=== PATIENT | female | born 1990 | race Caucasian/White ===

== ENCOUNTER 2021-08-12 18:13 | Inpatient (IN) | payer OTHER ==
[2021-08-12 19:07] VITALS: BMI 38.9
[2021-08-12] MEDS ORDERED: Penicillin G Potassium 5 MILL.UNITS VIAL ONE (19:29)
[2021-08-12] MEDS ORDERED: Ibuprofen 800 MG TAB PO PRN (19:30)
[2021-08-12] MEDS ORDERED: HYDROcodone/Acetaminophen 5/325 mg Tablet PO PRN ×2 (19:30)
[2021-08-12] MEDS ORDERED: hydrALAZINE 20 MG/ML VIAL SLOW IVP PRN (19:30)
[2021-08-12] MEDS ORDERED: Penicillin G Potassium 5 MILL.UNITS in Sodium Chloride 0.9% 100 ML IVPB SCH (19:30)
[2021-08-12] MEDS ORDERED: Butorphanol Tartrate 1 MG/ML VIAL SLOW IVP PRN (19:30)
[2021-08-12] MEDS ORDERED: NS w/ Oxytocin 30 units 500 ML IV SCH (19:30)
[2021-08-12] MEDS ORDERED: Lidocaine 1% (PF) 30 ML VIAL SC PRN (19:30)
[2021-08-12] MEDS ORDERED: Ondansetron PF 4 MG/2 ML Vial IVP PRN (19:30)
[2021-08-12] MEDS ORDERED: Lactated Ringer's 1,000 ML IV SCH ×2 (19:30)
[2021-08-12] MEDS ORDERED: Promethazine HCl 25 MG/ML VIAL IM PRN (19:30)
[2021-08-12 20:06] LABS: Hemoglobin 11.9 g/dL (12.0-15.5); Mean Corpuscular HGB CONC 35.1 g/dL (32.0-36.0); Mean Corpuscular Hemoglobin 29.7 pg (27.0-33.0); Mean Corpuscular Volume 84.5 fl (81.6-98.3); Mean Platelet Volume 12.2 fl (7.4-10.4); Platelet Count 204 10x3/uL (150-450); RBC Distribution Width 12.7 % (11.5-14.5); Red Blood Cell (RBC) Count 4.01 10x6/uL (3.90-5.03); White Blood Cell (WBC) Count 17.7 10x3/uL (3.5-10.5)
[2021-08-12 20:33] LABS: Hep B Surf Ag Non-Reactive S/CO (NonReactive); Syphilis Antibody Nonreactive (Nonreactive); Syphilis Antibody Index 0.05 S/CO (<1.00 Non-Reactive)
[2021-08-12 20:36] LABS: HBSAg Index 0.18 S/CO (0-0.99)
[2021-08-12 20:46] LABS: HIV (1/2) Antibody/Antigen Non-Reactive (NonReactive)
[2021-08-12 20:46] LABS: SARS-CoV-2 NAA Rapid Test Not Detected (NotDetected)
[2021-08-12] MEDS ORDERED: Misoprostol 200 MCG TAB ONE (21:29)
[2021-08-12] MEDS ORDERED: Carboprost 250 MCG/ML AMP ONE (22:04)
[2021-08-12] MEDS ORDERED: Methylergonovine 0.2 MG/ML VIAL ONE (22:04)
[2021-08-12] MEDS ORDERED: Penicillin G 2.5 MILL.units 2.5 MILL.UNITS in Premix Bag 1 BAG IVPB SCH (23:00)
[2021-08-13] MEDS ORDERED: Lactated Ringer's 1,000 ML IV SCH (01:15)
[2021-08-13 02:27] LABS: INR-International Normal Ratio 0.9; Prothrombin Time 10.4 sec (9.5-12.1)
[2021-08-13 08:51] LABS: Hemoglobin 8.6 g/dL (12.0-15.5); Mean Corpuscular Hemoglobin 30.2 pg (27.0-33.0); Mean Corpuscular Volume 83.9 fl (81.6-98.3); Mean Platelet Volume 12.7 fl (7.4-10.4); Platelet Count 190 10x3/uL (150-450); RBC Distribution Width 13.2 % (11.5-14.5); Red Blood Cell (RBC) Count 2.85 10x6/uL (3.90-5.03); White Blood Cell (WBC) Count 18.2 10x3/uL (3.5-10.5)
[2021-08-13] MEDS ORDERED: Milk Of Magnesia 30 ML UDCUP PO PRN (08:57)
[2021-08-13] MEDS ORDERED: Benzocaine-Menthol 82.5 ML CAN TOP PRN (08:57)
[2021-08-13] MEDS ORDERED: hydrALAZINE 20 MG/ML VIAL SLOW IVP PRN (08:57)
[2021-08-13] MEDS ORDERED: Lanolin Ointment 7 GM TUBE TOP PRN (08:57)
[2021-08-13] MEDS ORDERED: Bisacodyl 10 MG SUPP PR PRN (08:57)
[2021-08-13] MEDS ORDERED: HYDROcodone/Acetaminophen 5/325 mg Tablet PO PRN (08:57)
[2021-08-13] MEDS ORDERED: Boostrix 0.5 ML (Tdap) VIAL IM ONE (08:57)
[2021-08-13] MEDS ORDERED: Ferrous Sulfate 325 MG TAB PO SCH (09:15)
[2021-08-13] MEDS: Ibuprofen 800 MG TAB PO SCH ×2 (09:34→17:22)
[2021-08-13] MEDS: Prenatal Vitamin 1 TAB PO SCH (11:37)
[2021-08-13] MEDS: Docusate 100 MG CAP PO SCH ×2 (11:37→21:25)
[2021-08-13] MEDS: Ferrous Sulfate 325 MG TAB PO SCH (17:23)
[2021-08-14] MEDS: Ibuprofen 800 MG TAB PO SCH ×3 (00:17→17:49)
[2021-08-14 04:15] LABS: Hemoglobin 7.7 g/dL (12.0-15.5); Mean Corpuscular HGB CONC 35.3 g/dL (32.0-36.0); Mean Corpuscular Hemoglobin 30.3 pg (27.0-33.0); Mean Corpuscular Volume 85.8 fl (81.6-98.3); Mean Platelet Volume 12.2 fl (7.4-10.4); Platelet Count 171 10x3/uL (150-450); RBC Distribution Width 13.4 % (11.5-14.5); Red Blood Cell (RBC) Count 2.54 10x6/uL (3.90-5.03); White Blood Cell (WBC) Count 14.4 10x3/uL (3.5-10.5)
[2021-08-14] MEDS: Prenatal Vitamin 1 TAB PO SCH (08:29)
[2021-08-14] MEDS: Docusate 100 MG CAP PO SCH (08:29)
[2021-08-14] MEDS: Ferrous Sulfate 325 MG TAB PO SCH ×2 (08:29→17:49)
[2021-08-14 11:41] VITALS: BP 109/56; TEMP 98.1
== END 2021-08-14 18:00 | disposition home or self-care (01) | DRG 807 ==
LOC: CSHLD/OP 18:13 → CSHLD 19:00 → CSHPP 08-13 10:05
PROVIDERS: ADMIT Obstetrics & Gynecology; ATTEND Obstetrics & Gynecology
PROC: 10E0XZZ Delivery of Products of Conception, External Approach (ICD-10-PCS; principal; 2021-08-13)
PROC: 0KQM0ZZ Repair Perineum Muscle, Open Approach (ICD-10-PCS; 2021-08-13)
DX: O60.14X0 Preterm labor third trimester with preterm delivery third trimester, not applicable or unspecified (principal); Z37.0 Single live birth; Z3A.36 36 weeks gestation of pregnancy; Z20.822 Contact with and (suspected) exposure to COVID-19; O70.1 Second degree perineal laceration during delivery; O99.824 Streptococcus B carrier state complicating childbirth; O90.81 Anemia of the puerperium; D50.9 Iron deficiency anemia, unspecified
CPT/HCPCS: 36415; 85027; 85384; 85610; 86780; 86850; 86900; 86901; 87340; 87389; 99285; J2001; J2210; U0002